=== PATIENT | female | born 1990 | race Two or more races ===

== ENCOUNTER 2018-03-22 10:37 | Emergency (ER) | payer MEDICAID ==
[~2018-03-22] VITALS: Ht 162.6 cm; Wt 55.3 kg
[2018-03-22 10:42] VITALS: Ht 162.6 cm; Wt 55.3 kg
[2018-03-22 11:29] LABS: BASOPHIL % 0.3 % (0-2); PLATELET COUNT 266 x10^3mcL (130-400); RED CELL DISTRIBUTION WIDTH 12.9 % (11.5-14.5)
[2018-03-22 12:51] LABS: UA SPECIFIC GRAVITY <=1.005 (1.005-1.035); microscopic required? YES; urine erythrocyte TRACE (NEGATIVE)
[2018-03-22 13:24] VITALS: BP 103/53
== END 2018-03-22 13:24 | disposition home or self-care (01) ==
LOC: ED 10:37
PROVIDERS: Emergency Medicine
DX: O20.0 Threatened abortion (principal); Z3A.01 Less than 8 weeks gestation of pregnancy
CPT/HCPCS: 36415

== ENCOUNTER 2018-12-03 11:49 | Emergency (ER) | payer OTHER ==
[~2018-12-03] VITALS: Ht 157.5 cm; Wt 64.2 kg
[2018-12-03 12:11] VITALS: Ht 157.5 cm; Wt 64.2 kg
[2018-12-03 13:43] LABS: BASOPHIL % 1.1 % (0-2); PLATELET COUNT 333 x10^3mcL (130-400); RED CELL DISTRIBUTION WIDTH 14.1 % (11.5-14.5)
[2018-12-03 13:50] LABS: microscopic required? YES; urine erythrocyte 3+ (NEGATIVE)
[2018-12-03 14:50] LABS: CALCIUM 8.8 mg/dL (8.5-10.1); CARBON DIOXIDE 28.1 mmol/L (21-32); CHLORIDE SERUM 106 mmol/L (98-107); CREATININE SERUM 0.6 mg/dL (0.6-1.0); GFR1 > 60 mL/min; GLUCOSE SERUM 94 mg/dL (74-106); POTASSIUM SERUM 3.8 mmol/L (3.5-5.1); SODIUM SERUM 142 mmol/L (136-145)
[2018-12-03 14:57] LABS: ALKALINE PHOSPHATASE 116 U/L (46-116); ALT/SGPT 42 U/L (14-59); AST/SGOT 19 U/L (15-37); BILIRUBIN TOTAL 0.23 mg/dL (0.20-1.00); TOTAL PROTEIN, SERUM 7.2 g/dL (6.4-8.2)
[2018-12-03 15:16] VITALS: BP 119/70
== END 2018-12-03 15:16 | disposition home or self-care (01) ==
LOC: ED 11:49
PROVIDERS: Emergency Medicine
DX: R51 Headache (principal); R53.1 Weakness; N39.0 Urinary tract infection, site not specified
CPT/HCPCS: 36415; J7030